=== PATIENT | male | born 1970 | race Caucasian/White ===

== ENCOUNTER 2018-04-21 21:48 | Emergency (ER) | payer MEDICARE, MEDICAID ==
[2018-04-21 22:15] VITALS: BP 171/100; PULSE 91; RESP 18; TEMP 97.6; O2SAT 98
[2018-04-21 23:45] VITALS: BP 192/92; PULSE 78; RESP 20; O2SAT 99
--- NOTE | 2018-04-22 00:09 | PD ---
HPI Chief Complaint: Fall Time Seen by Provider: 00:09 Travel History International Travel<30 days: No Contact w/Intl Traveler<30days: No Traveled to known affect area: No History of Present Illness HPI 47-year-old male presents the emergency department status post fall complaining of right ankle pain. Patient reports hypertension and 3 prior strokes however he has no deficits which leads me to believe that they were TIAs. No head strike or any other injury at this time. He does have a right knee arthroplasty PFS Past Medical History Cerebrovascular Accident: Yes (X3) Diabetes: Yes Patient Takes Glucophage: No Diminished Hearing: No Hypertension: Yes Past Surgical History Other Surgery: Yes (L. KNEE X12, R KNEE X1 , L ANKLE X2, BACK SX ) Social History Alcohol Use: No Tobacco Use: No Substance Use: No Allergies-Medications (Allergen,Severity, Reaction): Coded Allergies: celecoxib (Verified Allergy, Intermediate, 04/21/18) paroxetine (Verified Allergy, Intermediate, 04/21/18) Reported Meds & Prescriptions Reported Meds & Active Scripts Active Percocet (Oxycodone-Acetaminophen) 5-325 mg Tab 1 Tab PO Q6H PRN Review of Systems Except as stated in HPI: all other systems reviewed are Neg HENT: No: Headaches, Vertigo, Lightheadedness Cardiovascular: No: Chest Pain or Discomfort Respiratory: No: Shortness of Breath Gastrointestinal: No: Nausea, Vomiting, Abdominal Pain Neurologic: Positive: Syncope, No: Weakness, Dizziness Physical Exam Narrative GENERAL: 47-year-old male in no distress SKIN: Focused skin assessment warm/dry. HEAD: Atraumatic. Normocephalic. EYES: Pupils equal and round. No scleral icterus. No injection or drainage. ENT: No nasal bleeding or discharge. Mucous membranes pink and moist. NECK: Trachea midline. No JVD. CARDIOVASCULAR: Regular rate and rhythm. No murmur appreciated. RESPIRATORY: No accessory muscle use. Clear to auscultation. Breath sounds equal bilaterally. GASTROINTESTINAL: Abdomen soft, non-tender, nondistended. Hepatic and splenic margins not palpable. MUSCULOSKELETAL: Prior remote right knee arthroscopy, edema right lateral malleolus, edema and erythema medial malleolus, he does have pain at the proximal fibula NEUROLOGICAL: Awake and alert. No obvious cranial nerve deficits. Motor grossly within normal limits. Normal speech. Data Data Last Documented VS Vital Signs Date Time Temp Pulse Resp B/P (MAP) Pulse Ox O2 Delivery O2 Flow Rate FiO2 04/21/18 23:45 78 20 192/92 (125) 99 Room Air 04/21/18 22:15 97.6 Orders Orders Oxycodone-Acetamin 5-325 Mg (Percocet (04/22/18 00:15) Ct Brain W/O Iv Contrast(Rout) (04/22/18 ) Ankle, Complete ([id number]) (04/22/18 ) Knee, Ltd (1 Or 2vws) (04/22/18 ) Oxycodone-Acetamin 5-325 Mg (Percocet (04/22/18 02:00) Support Splint (04/22/18 01:54) Ed Discharge Order (04/22/18 02:22) MDM Medical Decision Making Medical Screen Exam Complete: Yes Emergency Medical Condition: Yes Differential Diagnosis Ankle fracture, [place]uve fracture Narrative Course Patient seen and evaluated in the emergency department. His x-rays were negative for acute fracture, his head CT was negative. Patient's blood pressure came down to normal levels after analgesic was given. He was requesting to be discharged as he is on vacation and would prefer to follow-up with his regular doctors back home Diagnosis Primary Impression: Sprain and strain of ankle Patient Instructions: Ankle Sprain (ED), General Instructions, Narcotic given in the ED Med/Other Pt SpecificInfo: Prescription(s) given Scripts Oxycodone-Acetaminophen (Percocet) 5-325 mg Tab 1 TAB PO Q6H Y for PAIN, #12 TAB 0 Refills Prov: Dagmar Banuelos DO 04/22/18 Disposition: 01 DISCHARGE HOME Condition: Good Dagmar Banuelos DO Apr 22, 2018 00:09
[2018-04-22] MEDS ORDERED: oxyCODONE/ACETAMINOPHEN 5 MG/325 MG TAB PO ONE ×2 (00:15→02:00)
--- NOTE | 2018-04-22 01:05 | RADRPT ---
EXAM DATE: 04/22/2018 12:56 AM EDT AGE/SEX: 47 years / Male INDICATIONS: Syncopal episode. Trauma, fall. CLINICAL DATA: This is the patient's initial encounter. Patient reports that signs and symptoms have been present for 1 day and indicates a pain score of 8/10. MEDICAL/SURGICAL HISTORY: None. . RADIATION DOSE: 56.35 CTDI (mGy) COMPARISON: No prior exams available for comparison. TECHNIQUE: CT of the head without contrast. Using automated exposure control and adjustment of the mA and/or kV according to patient size, radiation dose was kept as low as reasonably achievable to ob tain optimal diagnostic quality images. FINDINGS: Cerebrum: The ventricles are normal for age. No evidence of midline shift, mass lesion, hemorrhage or acute infarction. No extraaxial fluid collections are seen. Posterior Fossa: The cerebellum and brainstem are intact. The 4th ventricle is midline. The cerebe llopontine angle is unremarkable. Extracranial: The visualized portion of the orbits is intact. Skull: The calvaria is intact. No evidence of skull fracture. CONCLUSION: 1. No acute intracranial abnormality Electronically signed by: Neel Moody MD 04/22/2018 1:04 AM EDT
--- NOTE | 2018-04-22 01:10 | RADRPT ---
EXAM DATE: 04/22/2018 1:08 AM EDT AGE/SEX: 47 years / Male INDICATIONS: Right knee pain post fall today CLINICAL DATA: This is the patient's initial encounter. Patient reports that signs and symptoms have been present for 1 day and indicates a pain score of 5/10. MEDICAL/SURGICAL HISTORY: None. Total knee replacement, right. COMPARISON: No prior exams available for comparison. FINDINGS: Views of the right knee demonstrates right knee arthroplasty. No fracture or effusion. Soft tissues a re unremarkable. No radiopaque foreign bodies seen. CONCLUSION: Right knee arthroplasty. Electronically signed by: Neel Moody MD 04/22/2018 1:09 AM EDT
--- NOTE | 2018-04-22 01:11 | RADRPT ---
EXAM DATE: 04/22/2018 1:07 AM EDT AGE/SEX: 47 years / Male INDICATIONS: Right ankle pain post fall today CLINICAL DATA: This is the patient's initial encounter. Patient reports that signs and symptoms have been present for 1 day and indicates a pain score of 5/10. MEDICAL/SURGICAL HISTORY: . Prior right ankle fracture . ORIF right ankle COMPARISON: No prior exams available for comparison. FINDINGS: Views of the right ankle are obtained. Plate and screws along the distal fibula. Old medial malleolus avulsion fracture. Ankle mortise intact. Large plantar calcaneal spur. Mild soft tissue swelling. N o radiopaque foreign bodies seen. CONCLUSION: Previous internal fixation. Old avulsion fracture medial malleolus. No acute fracture Electronically signed by: Neel Moody MD 04/22/2018 1:10 AM EDT
[2018-04-22] MEDS ORDERED: PERC5TAB12 PO (01:54)
[2018-04-22 02:33] VITALS: BP 188/90
== END 2018-04-22 02:35 | disposition home or self-care (01) ==
LOC: NEPC 21:48
DX: S96.911A Strain of unspecified muscle and tendon at ankle and foot level, right foot, initial encounter (principal); W19.XXXA Unspecified fall, initial encounter
CPT/HCPCS: 70450; 73560; 73610; 99284